=== PATIENT | female | born 1940 | race Caucasian/White ===

== ENCOUNTER 2016-08-26 12:07 | Observation (INO) | payer MEDICARE ==
[~2016-08-26] VITALS: Ht 153.7 cm; Wt 50.2 kg
[~2016-08-26 12:07] MED LIST: BACITRACIN 50,000 UNIT ONE; BUPIVACAINE/PF-EPI 0.5% 1:200K ONE; CEFAZOLIN 1,000 MG ONE; FENTANYL PF 250 MCG/5ML ONE; MIDAZOLAM 1 MG/ML, 2ML ONE; ONDANSETRON 2MG/ML, 2ML ONE; PROPOFOL 10 MG/ML, 20ML ONE; ROCURONIUM 10 MG/ML ONE; SUCCINYLCHOLINE 20 MG/ML, 10ML ONE; THROMBIN 5,000 UNIT VIAL TP ONE
[2016-08-26] MEDS ORDERED: POTA10TA31 PO (12:41)
[2016-08-26] MEDS ORDERED: ACET-1600 PO (12:41)
[2016-08-26] MEDS ORDERED: LEVO100T5 PO (12:41)
[2016-08-26] MEDS ORDERED: ATOR40TA78 PO (12:41)
[2016-08-26] MEDS ORDERED: TRAM50TA2 PO (12:41)
[2016-08-26] MEDS: LACTATED RINGERS 1,000 ML IV SCH ×2 (13:11→22:12)
[2016-08-26 13:13] VITALS: BP 154/75
[2016-08-26] MEDS ORDERED: OXYcodone 5 MG/5 ML ORAL.SOL UDC PO PRN (14:30)
[2016-08-26] MEDS ORDERED: hydrALAzine 20 MG/ML, 1ML IV PRN (14:30)
[2016-08-26] MEDS ORDERED: LABETALOL 5MG/ML, 20ML IV PRN (14:30)
[2016-08-26] MEDS ORDERED: ACETAMINOPHEN 325 MG TABLET PO PRN (14:30)
[2016-08-26] MEDS ORDERED: ONDANSETRON 2MG/ML, 2ML IVPush PRN ×2 (14:30→17:00)
[2016-08-26] MEDS ORDERED: FENTANYL PF 100 MCG/2ML IV PRN (14:30)
[2016-08-26] MEDS ORDERED: METOCLOPRAMIDE 5 MG/ML, 2ML IV PRN (14:30)
[2016-08-26] MEDS ORDERED: PROMETHAZINE 25 MG/ML, 1ML IM PRN (17:00)
[2016-08-26] MEDS ORDERED: LABETALOL 5MG/ML, 20ML IVPush PRN (17:00)
[2016-08-26] MEDS ORDERED: ACETAMINOPHEN 650 MG/20.3 ML UDC ONE (17:00)
[2016-08-26] MEDS ORDERED: HYDROcodone/APAP 5/325 TABLET PO PRN (17:00)
[2016-08-26] MEDS ORDERED: MAGNESIUM HYDROXIDE 8%, 30ML UDC PO PRN (17:00)
[2016-08-26] MEDS ORDERED: BISACODYL 10 MG SUPP PR PRN (17:00)
[2016-08-26] MEDS ORDERED: SENNA/DOCUSATE TABLET PO PRN (17:00)
[2016-08-26] MEDS ORDERED: PHARMACY MAY ADJ FOR RENAL FX MC PRN (17:00)
[2016-08-26] MEDS ORDERED: FENTANYL PF 100 MCG/2ML ONE (17:01)
[2016-08-26] MEDS ORDERED: HYDROmorphone 1 MG/ML, 1ML ONE ×2 (17:01→17:04)
[2016-08-26] MEDS ORDERED: OXYcodone 5 MG/5 ML ORAL.SOL UDC ONE (17:01)
[2016-08-26] MEDS: HYDROmorphone 1 MG/ML, 1ML IV PRN ×3 (17:05→17:44)
[2016-08-26] MEDS ORDERED: CYCLOBENZAPRINE 10 MG TABLET ONE (17:38)
[2016-08-26] MEDS: CYCLOBENZAPRINE 10 MG TABLET PO PRN (17:40)
[2016-08-26 19:00] VITALS: BP 138/72
[2016-08-26] MEDS ORDERED: ATORVASTATIN 40 MG TABLET PO SCH (21:00)
[2016-08-26] MEDS: NS + 20MEQ KCL 1,000 ML IV SCH (22:10)
[2016-08-26] MEDS: POTASSIUM CHLORIDE 10 MEQ TABLET.ER PO SCH (22:10)
[2016-08-26] MEDS: CEFAZOLIN PMX 1GM/50ML 50 ML IVPB SCH (22:11)
[2016-08-26] MEDS: SODIUM CHLORIDE FLUSH 10ML SYR IVF SCH (22:11)
[2016-08-27 00:16] VITALS: BP 104/63
[2016-08-27] MEDS: CYCLOBENZAPRINE 10 MG TABLET PO PRN (02:11)
[2016-08-27 03:08] VITALS: BP 109/54
[2016-08-27] MEDS: CEFAZOLIN PMX 1GM/50ML 50 ML IVPB SCH (06:04)
[2016-08-27] MEDS ORDERED: LEVOTHYROXINE 100 MCG TABLET PO SCH (06:30)
[2016-08-27 07:20] VITALS: BP 106/61
[2016-08-27] MEDS: SODIUM CHLORIDE FLUSH 10ML SYR IVF SCH (09:00)
[2016-08-27] MEDS: NS + 20MEQ KCL 1,000 ML IV SCH (09:30)
[2016-08-27] MEDS: POTASSIUM CHLORIDE 10 MEQ TABLET.ER PO SCH (09:31)
[2016-08-27 14:30] VITALS: BP 120/74
== END 2016-08-27 16:52 | disposition home or self-care (01) ==
LOC: OUT 12:07 → 4NOR 18:36 → OUT 08-27 09:52
PROVIDERS: ADMIT Neurological Surgery; ATTEND Neurological Surgery
DX: M54.16 Radiculopathy, lumbar region (principal); M48.06 Spinal stenosis, lumbar region; Z98.890 Other specified postprocedural states
CPT/HCPCS: 63030; 63035; 72100; 96365; 96375; 97116; 97161; 97166; C1781; G0378; J0330; J0690; J1170; J2250; J2405; J2704; J3010; J3480; J7120

== ENCOUNTER 2020-10-22 07:35 | Emergency (ER) | payer MEDICARE ==
[~2020-10-22] VITALS: Ht 149.9 cm; Wt 44.5 kg
[~2020-10-22 07:35] MED LIST changes: +ACET-1600 PO; +ATOR40TA78 PO; -BACITRACIN 50,000 UNIT ONE; -BUPIVACAINE/PF-EPI 0.5% 1:200K ONE; -CEFAZOLIN 1,000 MG ONE; -FENTANYL PF 250 MCG/5ML ONE; +LEVO100T5 PO; -MIDAZOLAM 1 MG/ML, 2ML ONE; -ONDANSETRON 2MG/ML, 2ML ONE; +POTA10TA31 PO; -PROPOFOL 10 MG/ML, 20ML ONE; -ROCURONIUM 10 MG/ML ONE; -SUCCINYLCHOLINE 20 MG/ML, 10ML ONE; -THROMBIN 5,000 UNIT VIAL TP ONE; +TRAM50TA2 PO
--- NOTE | 2020-10-22 07:35 | NUR ---
TRANSFER FROM THE [facility] FOR "TIA-LIKE EPISODE" YESTERDAY 0900 ("SLURRED SPEECH, FEELING IMBALANCED") & CAROTID STENOSIS PER CT; PT CHANGED INTO GOWN, MONITORS PLACED, AAOX4/RESPONDS APPROP TO STAFF & IS AT BASELINE, NAD/VSS, VERBALIZES NEEDS/COMFORT MEASURES PROVIDED, CALL LIGHT WITHIN REACH.
--- NOTE | 2020-10-22 07:55 | NUR ---
DR MALDONADO AT BS FOR EVAL & IS FAMILIAR WITH PT CC/PMHX.
--- NOTE | 2020-10-22 08:02 | NUR ---
Note tawanda in ED - 10/22/20 at 0831 by HEIDI PT RESTING COMFORTABLY IN BED, NAD WITH EQUAL CHEST RISE & FALL/VSS, NO NEEDS AT THIS TIME, CALL LIGHT WITHIN REACH.
[2020-10-22] MEDS ORDERED: CARB-218 PO ×2 (08:29)
[2020-10-22] MEDS ORDERED: DIFLUCAN OP (08:29)
[2020-10-22] MEDS ORDERED: ASPI-963 PO (08:29)
[2020-10-22] MEDS ORDERED: CALC-534 PO (08:29)
[2020-10-22] MEDS ORDERED: CHLO50TA PO (08:29)
[2020-10-22] MEDS ORDERED: MULT-658 PO (08:29)
[2020-10-22] MEDS ORDERED: IRON45TA7 PO (08:29)
--- NOTE | 2020-10-22 09:00 | NUR ---
PT AMBULATED TO STEADILY, BACK TO [facility] WATCHING TV, RESPONDS APPROP TO STAFF, NAD, MEAL TRAY GIVEN- OTHER COMFORT MEASURES PROVIDED, AT BS, CALL LIGHT WITHIN REACH.
--- NOTE | 2020-10-22 10:03 | NUR ---
PT UPRIGHT ON GURNEY AWAKE & COMFORTABLE WATCHING TV, RESPONDS APPROP TO STAFF, NAD, AWAITING NEURO CONSULT, NO NEEDS AT THIS TIME, AT BS, CALL LIGHT WITHIN REACH.
[2020-10-22 11:03] VITALS: BP 141/64
--- NOTE | 2020-10-22 11:03 | NUR ---
PT UPRIGHT ON GURNEY AWAKE & COMFORTABLE, DR MALDONADO AT BS UPDATING PT & FAMILY ON POC, RESPONDS APPROP TO STAFF, NAD, NO NEEDS AT THIS TIME, SISTER AT BS, CALL LIGHT WITHIN REACH.
--- NOTE | 2020-10-22 12:05 | NUR ---
Patient & spouse given discharge instructions and they have confirmed that they understand the instructions. Patient ambulatory with steady gait. NAD, all questions answered appropriately, denies additional needs at this time. No personal belongings left in room after discharge.
[2020-10-22] MEDS ORDERED: ATORVASTATIN 40 MG TABLET PO SCH (21:00)
== END 2020-10-22 09:00 | disposition home or self-care (01) ==
LOC: ED 08:14 → INTOOBSV 08:15 → UNDOADMOB 08:15 → EDIP 08:15 → ED 09:00
DX: I65.21 Occlusion and stenosis of right carotid artery (principal); I10 Essential (primary) hypertension; G20 Parkinson's disease
CPT/HCPCS: 99283

== ENCOUNTER 2020-11-13 14:58 | Inpatient (IN) | payer MEDICARE ==
[~2020-11-13] VITALS: Ht 152.4 cm; Wt 45.1 kg
[~2020-11-13 14:58] MED LIST changes: +ASPI-963 PO; +CALC-534 PO; +CARB-218 PO; +CHLO50TA PO; +DIFLUCAN OP; +IRON45TA7 PO; +MULT-658 PO
[2020-11-13 15:49] LABS: BASOPHILS % (AUTO) 1 % (0-1); EOSINOPHILS % (AUTO) 1 % (1-7); LYMPHOCYTES % (AUTO) 27 % (22-44); MEAN CORPUSCULAR HEMOGLOBIN 31.8 pg (27.0-34.8); MEAN CORPUSCULAR HGB CONC 33.6 g/dL (32.4-35.8); MEAN PLATELET VOLUME 9.1 fL (7.4-10.4); MONOCYTES % (AUTO) 11 % (2-9); NEUTROPHILS % (AUTO) 61 % (42-75); PLATELET COUNT 380 x10^3/uL (130-400); RED BLOOD COUNT 4.14 x10^6/uL (3.82-5.3); RED CELL DISTRIBUTION WIDTH 14.8 % (9.6-15.2)
[2020-11-13 15:50] LABS: ALANINE AMINOTRANSFERASE 9 U/L (12-78); ALBUMIN 3.6 g/dL (3.4-5.0); ANION GAP 7 mmol/L (5-15); CALCIUM 8.8 mg/dL (8.5-10.1); CHLORIDE 104 mmol/L (98-107); CREATININE 0.56 mg/dL (0.55-1.02)
--- NOTE | 2020-11-13 15:50 | NUR ---
PT TO ROOM FROM LOBBY AT THIS TIME.
[2020-11-13 15:52] LABS: ALKALINE PHOSPHATASE 62 U/L (45-117); BILIRUBIN,TOTAL 0.7 mg/dL (0.2-1.0); TOTAL PROTEIN 7.1 g/dL (6.4-8.2)
--- NOTE | 2020-11-13 16:02 | NUR ---
PT IN CT.
[2020-11-13] MEDS ORDERED: ATOR40TA PO (16:09)
[2020-11-13] MEDS ORDERED: CLOP75TA52 PO (16:09)
--- NOTE | 2020-11-13 16:15 | NUR ---
FIRST CONTACT W/ PT D/T PT CARE: THIS IS A 79 YO F W/ C/O 1 EPISODE OF CONFUSION, DIFFICULTY W/ SPEECH AT APPROX 10AM LASTING 1-2 HOURS. PT REPORTS WAS SEEN HERE RECENTLY FOR THE SAME. VSS, NADN PT AMBULATORY W/ A STEADY GAIT TO THE BR FOR URINE SAMPLE.
[2020-11-13 16:45] LABS: MICROSCOPIC NOT IND
[2020-11-13 17:16] LABS: INTERNATIONAL NORMALIZED RATIO 0.99 (0.93-1.1); PROTHROMBIN TIME 10.6 Seconds (9.6-11.5)
[2020-11-13] MEDS ORDERED: HEPARIN wt. based STROKE protocol MC PRN (18:00)
[2020-11-13] MEDS ORDERED: DO NOT GIVE XX PRN (18:00)
--- NOTE | 2020-11-13 18:25 | NUR ---
PT PROVIDED FOOD FROM .
--- NOTE | 2020-11-13 18:29 | NUR ---
PER PT NPO AT MIDNIGHT FOR CAROTID STENT PLACEMENT TOMORROW.
[2020-11-13] MEDS ORDERED: HEPARIN wt. based STROKE protocol MC SCH (18:30)
[2020-11-13] MEDS ORDERED: HEPARIN 25,000 UNITS/250ML PMX 250 ML IV PRN (18:30)
--- NOTE | 2020-11-13 18:32 | NUR ---
PT TO CT.
[2020-11-13] MEDS ORDERED: OMNIPAQUE 350 MG/ML, 100ML BOTTLE ONE (18:46)
--- NOTE | 2020-11-13 18:51 | NUR ---
COVID SWAB OBTAINED AND WALKED TO LAB. PT AMBULATED W/ A STEADY GAIT TO THE BR W/ SPOUSE STANDBY.
--- NOTE | 2020-11-13 18:55 | NUR ---
REPORT GIVEN TO SRINI ALAN. PT RESTING ON GURNEY W/ CALL LIGHT IN REACH, SIDE RAILS UPX2 AND FAMILY AT BEDSIDE. RESP EVEN AND UNLABORED, MARY JO.
--- NOTE | 2020-11-13 18:55 | NUR ---
Report received from DAYANNA Brennan. This RN to assume care. Heparin to be admin.
[2020-11-13] MEDS ORDERED: HEPARIN 25,000 UNITS/250ML PMX 250 ML ONE (19:02)
[2020-11-13] MEDS ORDERED: SODIUM CHLORIDE FLUSH 10ML SYR IVF PRN (19:30)
--- NOTE | 2020-11-13 19:35 | NUR ---
Heparin initiated. Patient tbadm.
--- NOTE | 2020-11-13 19:43 | NUR ---
Report given to DAYANNA Kruger. Patient to be transferred to room 423.
[2020-11-13 20:46] VITALS: BP 114/59
[2020-11-13] MEDS ORDERED: ONDANSETRON 2MG/ML, 2ML IVPush PRN (21:00)
[2020-11-13] MEDS ORDERED: HYDROcodone/APAP 5/325 TABLET PO PRN (21:00)
[2020-11-13] MEDS: LACTATED RINGERS 1,000 ML IV SCH (21:00)
[2020-11-13] MEDS ORDERED: hydrALAzine 20 MG/ML, 1ML IVPush PRN (21:00)
[2020-11-13] MEDS: ATORVASTATIN 40 MG TABLET PO SCH (21:55)
[2020-11-13] MEDS ORDERED: CARBIDOPA/LEVODOPA 25 MG/100 MG TABLET PO ONE (22:30)
[2020-11-14] VITALS (7 sets, daily range): BP systolic 110–181; BP diastolic 56–87
[2020-11-14] MEDS: LEVOTHYROXINE 75 MCG TABLET PO SCH (05:40)
[2020-11-14] MEDS: LACTATED RINGERS 1,000 ML IV SCH ×2 (05:40→18:39)
[2020-11-14] MEDS: CHLORTHALIDONE 25 MG TABLET PO SCH (11:14)
[2020-11-14] MEDS: ACETAMINOPHEN 500 MG TABLET PO PRN (11:14)
[2020-11-14] MEDS: ASPIRIN 81 MG TABLET EC PO SCH (12:55)
[2020-11-14] MEDS: CLOPIDOGREL 75 MG TABLET PO SCH (12:55)
[2020-11-14] MEDS ORDERED: HYDROXYZINE PAMOATE 25MG CAP PO PRN (15:30)
[2020-11-14] MEDS ORDERED: POLYETHYLENE GLYCOL 17 GM PACKET NG PRN (15:30)
[2020-11-14] MEDS: CARBIDOPA/LEVODOPA 25 MG/100 MG TABLET PO SCH ×2 (16:50→20:55)
[2020-11-14] MEDS: DOCUSATE 100 MG CAPSULE PO SCH (20:55)
[2020-11-14] MEDS: ATORVASTATIN 40 MG TABLET PO SCH (20:56)
[2020-11-15 01:05] VITALS: BP 93/55
[2020-11-15 01:17] VITALS: BP 115/73
[2020-11-15] MEDS: LACTATED RINGERS 1,000 ML IV SCH (04:23)
[2020-11-15 05:13] LABS: ANION GAP 6 mmol/L (5-15); CALCIUM 8.8 mg/dL (8.5-10.1); CHLORIDE 106 mmol/L (98-107); CREATININE 0.45 mg/dL (0.55-1.02)
[2020-11-15] MEDS: ASPIRIN 81 MG TABLET EC PO SCH (06:14)
[2020-11-15] MEDS: LEVOTHYROXINE 75 MCG TABLET PO SCH (06:14)
[2020-11-15 06:43] VITALS: BP 126/55
[2020-11-15] MEDS: DOCUSATE 100 MG CAPSULE PO SCH ×2 (07:51→20:42)
[2020-11-15] MEDS: CLOPIDOGREL 75 MG TABLET PO SCH (07:51)
[2020-11-15] MEDS: CHLORTHALIDONE 25 MG TABLET PO SCH (07:52)
[2020-11-15] MEDS ORDERED: OXYcodone 5 MG/5 ML ORAL.SOL UDC PO PRN (11:30)
[2020-11-15] MEDS ORDERED: morphine SULFATE 10 MG/ML, 1ML IVPush PRN (11:30)
[2020-11-15] MEDS ORDERED: ACETAMINOPHEN 325 MG TABLET PO PRN (11:30)
[2020-11-15] MEDS ORDERED: MEPERIDINE/PF 25MG/0.5ML IVPush PRN (11:30)
[2020-11-15] MEDS ORDERED: ONDANSETRON 2MG/ML, 2ML IVPush PRN (11:30)
[2020-11-15] MEDS ORDERED: PROMETHAZINE 25 MG/ML, 1ML IVPush PRN (11:30)
[2020-11-15] MEDS ORDERED: FENTANYL PF 100 MCG/2ML IV PRN (11:30)
[2020-11-15] MEDS ORDERED: HYDROmorphone 1 MG/ML, 1ML INJ IVPush PRN (11:30)
[2020-11-15] MEDS ORDERED: HEPARIN 1,000 UNITS/ML, 10ML ONE (12:22)
[2020-11-15] MEDS ORDERED: CEFAZOLIN 1,000 MG ONE (12:46)
[2020-11-15] MEDS ORDERED: MIDAZOLAM 1 MG/ML, 5ML ONE (12:46)
[2020-11-15] MEDS ORDERED: LIDOCAINE 1%, 10ML ONE (13:12)
[2020-11-15] MEDS ORDERED: PROTAMINE SULFATE 10 MG/ML, 25ML ONE (13:51)
[2020-11-15 14:33] VITALS: BP 157/115
[2020-11-15] MEDS: ACETAMINOPHEN 500 MG TABLET PO PRN (15:35)
[2020-11-15] MEDS: CARBIDOPA/LEVODOPA 25 MG/100 MG TABLET PO SCH ×2 (16:15→20:42)
[2020-11-15 20:40] VITALS: BP 119/64
[2020-11-15] MEDS: ATORVASTATIN 40 MG TABLET PO SCH (20:42)
[2020-11-16 02:00] VITALS: BP 124/76
[2020-11-16] MEDS: LEVOTHYROXINE 75 MCG TABLET PO SCH (05:11)
[2020-11-16] MEDS: ASPIRIN 81 MG TABLET EC PO SCH (05:11)
[2020-11-16 06:57] VITALS: BP 114/60
[2020-11-16] MEDS: DOCUSATE 100 MG CAPSULE PO SCH (08:46)
[2020-11-16] MEDS: CLOPIDOGREL 75 MG TABLET PO SCH (08:47)
[2020-11-16] MEDS: CHLORTHALIDONE 25 MG TABLET PO SCH (08:47)
[2020-11-16] MEDS ORDERED: CARBIDOPA/LEVODOPA 25 MG/100 MG TABLET PO SCH (09:00)
== END 2020-11-16 14:19 | disposition home or self-care (01) | DRG 68 ==
LOC: ED 15:40 → EDIP 18:27 → 4WST 20:20
PROVIDERS: ADMIT Internal Medicine; ATTEND Family Medicine
PROC: B3131ZZ Fluoroscopy of Right Common Carotid Artery using Low Osmolar Contrast (ICD-10-PCS; 2020-11-15)
PROC: 03HY33Z Insertion of Infusion Device into Upper Artery, Percutaneous Approach (ICD-10-PCS; 2020-11-15)
PROC: B3101ZZ Fluoroscopy of Thoracic Aorta using Low Osmolar Contrast (ICD-10-PCS; principal; 2020-11-15 14:00)
DX: I65.21 Occlusion and stenosis of right carotid artery (principal); E46 Unspecified protein-calorie malnutrition; Z68.1 Body mass index [BMI] 19.9 or less, adult; R47.01 Aphasia; I10 Essential (primary) hypertension; G20 Parkinson's disease; E03.9 Hypothyroidism, unspecified; E78.5 Hyperlipidemia, unspecified; F02.80 Dementia in other diseases classified elsewhere, unspecified severity, without behavioral disturbance, psychotic disturbance, mood disturbance, and anxiety; Z86.73 Personal history of transient ischemic attack (TIA), and cerebral infarction without residual deficits; Z88.2 Allergy status to sulfonamides
CPT/HCPCS: 36224; 36415; 70450; 70498; 80048; 80053; 80061; 81003; 83036; 83735; 84100; 84443; 85025; 85347; 85520; 85610; 85730; 87635; 93005; 93306; 99291; G0378; J0690; J1644; J2250; J2720; J3010; Q9967; C1751; C1760; C1769; C1894; J7120